=== PATIENT | female | born 1960 | race Caucasian/White ===

== ENCOUNTER 2021-05-18 23:42 | Emergency (ER) | payer MEDICARE, OTHER ==
[~2021-05-18] VITALS: Ht 177.8 cm; Wt 120.2 kg
[~2021-05-18 23:42] MED LIST: GABAPENTIN 100100 MG PO; HYDROCODON-ACE1 EAC7 PO; LASIX 40 MG TAB40 M2 PO; LEVOTHYROXIN0.025 MG PO; LISINOPRIL10 MG PO; METFORMIN HCL500 MG PO; MS CONTIN15 MG PO; NEURONTIN 300300 M1 PO; OXYCODONE HCL15 MG PO; POTASSIUM20 PO; ZANAFLEX4 MG PO; ZOCOR20 MG PO
[2021-05-19 01:41] VITALS: BP 122/58
== END 2021-05-19 01:42 | disposition home or self-care (01) ==
LOC: M.ERS 23:42
DX: F41.1 Generalized anxiety disorder (principal); I10 Essential (primary) hypertension; E11.9 Type 2 diabetes mellitus without complications; E78.5 Hyperlipidemia, unspecified; Z79.899 Other long term (current) drug therapy